=== PATIENT | female | born 2000 | race Caucasian/White ===

== ENCOUNTER 2022-02-12 00:18 | Emergency (ER) | payer OTHER ==
[2022-02-12] MEDS ORDERED: Albuterol/Ipratropium 3.0-0.5 MG/3 ML Neb Soln NEB ONE (00:26)
[2022-02-12] MEDS ORDERED: methylPREDNISolone Sodium Succinate 125 MG/2 ML SDV IM ONE (00:26)
== END 2022-02-12 01:33 | disposition home or self-care (01) ==
LOC: FB.ED 00:18
DX: J45.901 Unspecified asthma with (acute) exacerbation (principal)
CPT/HCPCS: 94640; 96372; 99283; 99284; J2930; J7620

== ENCOUNTER 2025-04-07 20:24 | Emergency (ER) | payer MEDICAID, OTHER ==
[2025-04-07] MEDS ORDERED: traMADol 50 MG Tab PO ONE (20:25)
[2025-04-07] MEDS ORDERED: Naloxone 0.4 MG/ML SDV IVPUSH PRN (20:53)
[2025-04-07] MEDS: HYDROmorphone 2 MG/ML SDV IM ONE (20:59)
== END 2025-04-07 21:31 | disposition home or self-care (01) ==
LOC: FB.ED 20:24
DX: M54.41 Lumbago with sciatica, right side (principal); J45.909 Unspecified asthma, uncomplicated; Z88.6 Allergy status to analgesic agent; Z79.51 Long term (current) use of inhaled steroids; Z79.899 Other long term (current) drug therapy
CPT/HCPCS: 96372; 99283; A9270; J1171